=== PATIENT | female | born 1945 | race Caucasian/White ===

== ENCOUNTER → 2017-02-24 | Outpatient (CLI) | payer OTHER ==
[2015-01-18 10:17] VITALS: BP 166/80
--- NOTE | 2017-02-24 14:18 | MG ---
Examination: Bilateral diagnostic mammogram and left breast ultrasound. Clinical history: Personal history of left breast carcinoma with a left lumpectomy and left axillary dissection, as well as radiation therapy to the left breast in 2014. Now has pain at the lumpectomy s ite and in the retroareolar region of the left breast. Technique: Multiple digital images of both breasts were obtained. Implant displaced views of both aiden asts were also obtained. Targeted left breast ultrasound was also obtained evaluating the lumpectomy site and the retroareolar region of the left breast. Comparison: 02/05/2016, 08/02/2015. Findings: The breasts are heterogeneously dense, reducing the sensitivity of mammography. Bilateral breast pros theses are partially visualized, with no definite abnormality noted. Benign-appearing calcifications and vascular calcifications are noted in the breasts bilaterally. There are stable postsurgical darnell es from a left lumpectomy with a left axillary dissection. No suspicious mass, new area of architectural distortion or suspicious cluster of microcalcifications is noted. Targeted left breast ultrasound evaluating the lumpectomy site and retroareolar region of the left br east reveals a stable irregular-shaped hypoechoic area present at the lumpectomy site at the 9 o'cloc k position in the left breast, consistent with postsurgical scarring, with scattered areas of mild du ctal ectasia also seen at the lumpectomy site and in the retroareolar region of the left breast. No s uspicious cystic or solid mass is noted. Impression: 1. Stable postsurgical changes from a left lumpectomy. No mammographic or sonographic evidence of mal ignancy. BI-RADS category 2-benign findings. Recommend routine annual screening mammogram. Diagnostic CAD was utilized and reviewed. * 0 (ZERO) - ASSESSMENT INCOMPLETE; ADDITIONAL IMAGING IS NEEDED. * 0C - ASSESSMENT INCOMPLETE, NEEDS ADDITIONAL IMAGING EVALUATION AND/OR PRIOR MAMMOGRAMS FOR COMPARI SON. * / (ONE) - NEGATIVE. * 2/II (TWO) - BENIGN FINDINGS. * 3/III (THREE) - PROBABLY BENIGN FINDING; SHORT INTERVAL FOLLOW-UP SUGGESTED. * 4/IV (FOUR) - SUSPICIOUS ABNORMALITY; BIOPSY SHOULD BE CONSIDERED. * 5/V - HIGHLY SUSPICIOUS OF MALIGNANCY; BIOPSY SHOULD BE PERFORMED. * 6/IV - KNOWN BIOPSY PROVEN MALIGNANCY-APPROPRIATE ACTION SHOULD BE TAKEN. A NEGATIVE X-RAY REPORT SHOULD NOT DELAY BIOPSY IF A DOMINANT OR CLINICALLY SUSPICIOUS MASS IS PRESENT; 4 TO 8 PERCENT OF CANCERS ARE NOT IDENTIFIED BY X-RAY. A NEGATIVE REPORT MAY REINFORCE THE CLINICAL IMPRESSION. ADENOSIS AND DENSE BREASTS MAY OBSCURE AN UNDERLYING NEOPLASM. Reported By:
== END | disposition home or self-care (01) ==
LOC: RAD 12:20
PROVIDERS: ATTEND Specialist
DX: Z85.3 Personal history of malignant neoplasm of breast (principal); N64.4 Mastodynia
CPT/HCPCS: 76642; 77066

== ENCOUNTER → 2017-06-02 | Outpatient (CLI) | payer OTHER ==
[2015-01-18 10:17] VITALS: BP 166/80
--- NOTE | 2017-06-02 14:45 | MRI ---
HISTORY: Low back pain Study: MRI lumbar spine without contrast Comparison: None Technique: Multisequence, multiplanar imaging of the lumbar spine was performed without the administration of IV contrast. Findings: Imaging of the lumbar spine demonstrates minimal anterolisthesis of L3 on L4, likely secondary to adv anced facet hypertrophy and degenerative disc disease at this level. There is mild loss of vertebral body height centrally involving the L5 vertebral body, likely related to degenerative disc disease. N o acute or early subacute compression fracture is identified within the lumbar spine. Multilevel disc desiccation is noted. There is severe loss of disc space height at the T12-L1 level with associated degenerative endplate change and mild reactive edema. Milder degenerative endplate changes are identi fied at other levels within the lumbar spine. Moderate loss of disc space height is noted at the L3-L 4 level. The conus terminates at the L1 level. Evaluation of the pre and paravertebral soft tissues d emonstrates a tiny renal cyst within the left kidney. T12-L1: At the T12-L1 level there is a mild broad-based disc bulge as well as mild facet hypertrophy, resulting in no significant canal stenosis or neuroforaminal compromise. L1-L2: At the L1-L2 level there is mild facet hypertrophy and mild disc ridging, resulting in no sign ificant canal stenosis or neuroforaminal compromise. L2-L3: At the L2-L3 level there is facet hypertrophy and mild disc ridging, resulting in no significa nt canal stenosis or neuroforaminal compromise. L3-L4: At the L3-L4 level there is a mild broad-based disc bulge with a slight right lateral recess p redominance and facet hypertrophy which, along with mild listhesis at this level, are resulting in mi ld neuroforaminal compromise on the right but no significant canal stenosis. L4-L5: At the L4-L5 level there is a small left lateral recess disc protrusion superimposed upon mild broad-based disc ridging and facet hypertrophy, resulting in moderate to severe neuroforaminal compr omise on the left and minimal neuroforaminal compromise on the right but no significant canal stenosi s. There appears to be mass effect upon the exiting left L4 nerve root by the disc protrusion. L5-S1: At the L5-S1 level there is a small right lateral recess disc protrusion superimposed upon mil d broad-based disc ridging as well as advanced facet hypertrophy, resulting in no significant canal s tenosis or neuroforaminal compromise. IMPRESSION: 1. Multilevel facet arthropathy and degenerative disc disease as described above, most significant at the L4-L5 level, where there is moderate to severe neuroforaminal compromise on the left secondary t o a left lateral recess disc protrusion, which appears to exhibit mass effect upon the exiting left L 4 nerve root. Reported By:
== END | disposition home or self-care (01) | DRG 552 ==
LOC: RAD 12:48
PROVIDERS: ATTEND Orthopaedic Surgery
DX: M54.5 Low back pain (principal); M51.36 Other intervertebral disc degeneration, lumbar region; M12.88 Other specific arthropathies, not elsewhere classified, other specified site
CPT/HCPCS: 72148

== ENCOUNTER → 2017-08-05 | Outpatient (CLI) | payer OTHER ==
[2015-01-18 10:17] VITALS: BP 166/80
--- NOTE | 2017-08-05 16:51 | CT ---
History: Hypertension, breast cancer, low back pain Study: Lumbar spine without contrast Findings: [address] imaging is performed from the lower portion of T11 through the sacrum and c occyx in the axial plane with coronal and sagittal reformatted images submitted as well. There is sev ere osteopenia of the bony structures. There is severe disc space narrowing at the T12-L1 and L3-4 le vels were vacuum discs are present. There is mild disc space narrowing at the L4-5 level with associa fer vacuum disc. No disc herniation, spinal or foraminal stenosis is identified. There are mild-to-mo derate osteoarthritic changes of the apophyseal joints predominantly in the lower lumbar region. No f racture is seen. 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 Osteopenia of the bony structures. Reported By:
--- NOTE | 2017-08-06 11:02 | MRI ---
MR right hip without contrast Indication: Bilateral hip joint pain and lower back pain. History of breast cancer. Technique: Multiplanar multi sequence imaging through the right hip and pelvis without contrast Findings: There is lower lumbar spine disc degenerative change and facet arthropathy. SI joint DJD no fer. Bilateral mild hip joint degenerative change noted. Symphysis pubis DJD seen. Bilateral gluteus medius atrophy noted. Bone marrow signal is normal. Visualized abdominopelvic soft tissue shows no ac iliamna abnormality. There is bilateral greater trochanteric bursitis. Trace joint fluid present bilaterally. Chronic fraying of the right acetabular labrum noted. Tendinosis versus chronic tearing of the gluteus medius tendon suggested. Impression: 1. Bilateral greater trochanteric bursitis with chronic tearing/tendinosis of the gluteus medius tend on on the right noted. Right gluteus medius muscle belly atrophy noted. 2. Fraying of the right acetabular labrum, pelvis degenerative change other findings as above. Reported By:
--- NOTE | 2017-08-06 11:04 | MRI ---
MR left hip without contrast Indication: Hip joint pain. Bilateral hip pain and lower back pain. Findings: There is spine degenerative change. Bone marrow signal is normal. Neurovascular structures and abdominopelvic soft tissues shows no acute abnormality. SI joint, symphysis pubis and bilateral h ip joint degenerative changes noted. Bilateral gluteus medius muscle belly atrophy noted. There is bi lateral greater trochanteric bursitis. Gluteus medius tendinosis noted on the left, with partial tear suspected on the right. There is no fracture. Degenerative fraying of the left acetabulum noted. Tra ce left hip joint fluid identified. Impression: 1. Left greater trochanteric bursitis and gluteus medius tendinosis with muscle belly atrophy. Partia l tear possible. 3. Left hip and pelvis degenerative changes as above Reported By:
== END | disposition home or self-care (01) | DRG 556 ==
LOC: RAD 13:47
PROVIDERS: ATTEND Neurological Surgery
DX: M25.559 Pain in unspecified hip (principal); M54.16 Radiculopathy, lumbar region; M51.36 Other intervertebral disc degeneration, lumbar region; M85.88 Other specified disorders of bone density and structure, other site; M47.896 Other spondylosis, lumbar region; M16.12 Unilateral primary osteoarthritis, left hip; M76.02 Gluteal tendinitis, left hip; S73.191A Other sprain of right hip, initial encounter; X58.XXXA Exposure to other specified factors, initial encounter
CPT/HCPCS: 72131; 73721

== ENCOUNTER → 2017-08-27 | Outpatient (CLI) | payer OTHER ==
[2015-01-18 10:17] VITALS: BP 166/80
--- NOTE | 2017-08-27 16:40 | MRI ---
MRI OF THE CERVICAL SPINE WITHOUT IV CONTRAST CLINICAL INDICATION: Cervical spine stenosis TECHNIQUE: Pre-contrast sagittal T1-, T2-, and T2-w fat-saturated images, and axial T1- and T2-w imag es of the cervical spine. COMPARISON: None. FINDINGS: Grade 1 retrolisthesis of C5 on C6. Vertebral bodies are normal in height. There is a normal marrow s ignal pattern. Multilevel degenerative disc disease. There is no abnormality of the cranio-cervical j unction. The included paraspinal soft tissues are grossly normal. Evaluation of the individual levels demonstrates: C1-2: Normal C2-3: Disc osteophyte complex with luek-qc-wycnrcrt central stenosis and moderate left neural foramin al stenosis C3-4: Disc osteophyte complex with moderate central stenosis and moderate left neural foraminal steno sis C4-5: Disc osteophyte complex with moderate central stenosis and moderate left-sided neural foraminal C5-6: Stenosis. Disc osteophyte complex with kanx-ow-bhiarhad central stenosis and moderate bilateral neural foraminal stenosis C6-7: Normal C7-T1: Normal IMPRESSION: 1. Multilevel degenerative disc disease as above. Reported By:
== END | disposition home or self-care (01) | DRG 552 ==
LOC: RAD 10:08
PROVIDERS: ATTEND Neurological Surgery
DX: M48.02 Spinal stenosis, cervical region (principal); M50.31 Other cervical disc degeneration, high cervical region
CPT/HCPCS: 72141

== ENCOUNTER 2019-11-17 18:49 | Inpatient (IN) ==
[2019-11-17 22:30] LABS: BASOPHILS % (AUTO) 0.6 % (0.2-1.0); EOSINOPHILS # (AUTO) 0.1 x10^3/uL (0.0-0.2); EOSINOPHILS % (AUTO) 1.1 % (0.9-2.9); HEMOGLOBIN 12.8 g/dL (12.0-16.0); LYMPHOCYTES % (AUTO) 15.1 % (21.0-51.0); MEAN CORPUSCULAR HEMOGLOBIN 29.3 pg (27.0-34.0); MEAN CORPUSCULAR HGB CONC 33.6 g/dL (33.0-35.0); MEAN CORPUSCULAR VOLUME 87.2 fL (80.0-100.0); MEAN PLATELET VOLUME 7.6 fL (7.4-11.0); MONOCYTES # (AUTO) 0.9 x10^3/uL (0.3-0.8); MONOCYTES % (AUTO) 12.9 % (0.0-13.0); NEUTROPHILS # (AUTO) 4.7 x10^3/uL (2.2-4.8); NEUTROPHILS % (AUTO) 70.3 % (42.0-75.0); PLATELET COUNT 294 X10^3/uL (150.0-450.0); RED BLOOD COUNT 4.36 X10^6/uL (3.5-5.4); RED CELL DISTRIBUTION WIDTH 13.7 % (11.6-16.5); WHITE BLOOD COUNT 6.7 X10^3/uL (3.6-10.0)
[2019-11-17] MEDS ORDERED: TORADOL 15 MG VIAL IVP PRN (22:36)
[2019-11-17] MEDS ORDERED: ZOFRAN INJ 4 MG VIAL IVP PRN (22:36)
[2019-11-17 22:40] LABS: ALANINE AMINOTRANSFERASE 32 Units/L (12-78); ALBUMIN 3.4 g/dL (3.4-5.0); ALKALINE PHOSPHATASE 67 Units/L (46-116); ASPARTATE AMINO TRANSFERASE 33 Units/L (15-37); BLOOD UREA NITROGEN 23 mg/dL (7-18); CARBON DIOXIDE 27.1 mmol/L (21-32); CHLORIDE 99 mmol/L (98-107); SODIUM 134 mmol/L (136-145); TOTAL PROTEIN 7.7 g/dL (6.4-8.2); eGFR NON BLACK RACES 47 (>60)
[2019-11-17] MEDS: NS 1000 ML 1,000 ML IV SCH (23:30)
[2019-11-17] MEDS ORDERED: POTASSIUM CHLORIDE LIQ 20 MEQ UDC PO PRN (23:52)
[2019-11-17] MEDS ORDERED: POTASSIUM CHL 40 MEQ/NS 0.45% 500 ML IV PRN (23:52)
[2019-11-17] MEDS ORDERED: MICRO K EXTEN CAP 10 MEQ PO PRN (23:52)
[2019-11-17] MEDS ORDERED: K-RIDER 10 MEQ/NS 100 ML 10 MEQ/100 ML BAG IV PRN (23:52)
[2019-11-17] MEDS ORDERED: POTASSIUM CHL 60 MEQ/NS 0.45% 500 ML IV PRN (23:52)
[2019-11-17] MEDS ORDERED: KLOR-CON PO PRN (23:52)
[2019-11-17] MEDS ORDERED: K-DUR TAB 20 MEQ PO ONE (23:59)
[2019-11-18] MEDS: K-DUR TAB 20 MEQ PO PRN (00:12)
[2019-11-18] MEDS ORDERED: MAGNESIUM SULFATE 1 GRAM/100 mL PREMIX 1 G/100 ML BAG IV ONE ×3 (02:32→04:41)
[2019-11-18] MEDS: MAGNESIUM SULFATE 1 GRAM/100 mL PREMIX 1 G/100 ML BAG IV PRN ×4 (02:40→06:17)
[2019-11-18] MEDS: NS 1000 ML 1,000 ML IV SCH ×3 (06:17→22:41)
[2019-11-18 06:22] LABS: BASOPHILS % (AUTO) 0.8 % (0.2-1.0); EOSINOPHILS # (AUTO) 0.1 x10^3/uL (0.0-0.2); HEMATOCRIT 36.3 % (36.0-47.0); HEMOGLOBIN 12.4 g/dL (12.0-16.0); LYMPHOCYTES % (AUTO) 17.6 % (21.0-51.0); MEAN CORPUSCULAR HEMOGLOBIN 29.9 pg (27.0-34.0); MEAN CORPUSCULAR HGB CONC 34.1 g/dL (33.0-35.0); MEAN CORPUSCULAR VOLUME 87.6 fL (80.0-100.0); MEAN PLATELET VOLUME 8.7 fL (7.4-11.0); MONOCYTES # (AUTO) 0.7 x10^3/uL (0.3-0.8); MONOCYTES % (AUTO) 12.1 % (0.0-13.0); NEUTROPHILS # (AUTO) 3.7 x10^3/uL (2.2-4.8); NEUTROPHILS % (AUTO) 67.5 % (42.0-75.0); PLATELET COUNT 285 X10^3/uL (150.0-450.0); RED BLOOD COUNT 4.15 X10^6/uL (3.5-5.4); RED CELL DISTRIBUTION WIDTH 13.7 % (11.6-16.5); WHITE BLOOD COUNT 5.4 X10^3/uL (3.6-10.0)
[2019-11-18 06:23] LABS: ALANINE AMINOTRANSFERASE 31 Units/L (12-78); ALKALINE PHOSPHATASE 57 Units/L (46-116); ASPARTATE AMINO TRANSFERASE 31 Units/L (15-37); BLOOD UREA NITROGEN 21 mg/dL (7-18); CALCIUM 9.3 mg/dL (8.5-10.1); CARBON DIOXIDE 26.5 mmol/L (21-32); CHLORIDE 100 mmol/L (98-107); COR CA(FOR HYPOALB) 10.1 mg/dL (8.5-10.1); COR NA(FOR HYPERGLY) 134 mmol/L (136-145); CREATININE 1.06 mg/dL (0.55-1.02); SODIUM 134 mmol/L (136-145); TOTAL PROTEIN 6.9 g/dL (6.4-8.2); eGFR NON BLACK RACES 54 (>60)
[2019-11-18] MEDS ORDERED: NS 1000 ML 1,000 ML IV ONE (09:59)
[2019-11-18] MEDS ORDERED: LEVAQUIN PREMIX IV 500 MG 500 MG/100 ML BAG IV SCH (10:00)
[2019-11-18] MEDS ORDERED: FORTAZ or TAZICEF VIAL INJ 1 G in NS 100 ML IV + SPIKE MINIBAG* 100 ML IV SCH (10:00)
[2019-11-18] MEDS ORDERED: OLMESARTAN AMLODIPIN HCTHIAZID PO SCH (10:15)
[2019-11-18] MEDS ORDERED: LEVAQUIN PREMIX IV 500 MG 500 MG/100 ML BAG IV NR (11:00)
[2019-11-18] MEDS ORDERED: PROTONIX TAB 40 MG PO ONE (11:04)
[2019-11-18] MEDS: MICRO K EXTEN CAP 10 MEQ PO SCH (11:08)
[2019-11-18] MEDS: TRICOR TAB 160 MG PO SCH (11:08)
[2019-11-18] MEDS: COREG TAB 12.5 MG PO SCH ×2 (11:09→21:00)
[2019-11-18] MEDS: NEURONTIN CAP 300 MG PO SCH ×3 (11:09→21:00)
[2019-11-18] MEDS: SYNTHROID 50 mcg TAB PO SCH (11:09)
[2019-11-18] MEDS: ULTRAM PO SCH ×3 (11:10→22:41)
[2019-11-18] MEDS: LOVENOX INJ 40 MG SYR SC SCH (11:14)
[2019-11-18] MEDS: NORVASC TAB 10 MG PO SCH (11:14)
[2019-11-18] MEDS: HYDROCHLOROTHIAZIDE 25 MG TAB PO SCH (11:14)
[2019-11-18] MEDS: BENICAR TAB 40 MG PO SCH (11:15)
--- NOTE | 2019-11-18 13:37 | DR.H&P ---
H&P - History & Physical for Day of: H&P Date: 11/17/19 - Chief Complaint Chief Complaint: FEVER, NAUSEA, VOMITING, WEAKNESS, ABDOMINAL PAIN - History of Present Illness History of Present Illness: IS A 74 YEAR OLD PATIENT OF OURS. SHE PRESENTED TO THE HOSPITAL A DIRECT ADMISSION DUE TO COMPLAINTS OF FEVER, NAUSEA, VOMITING, WEAKNESS, AND ABDOMINAL PAIN. SHE WAS TREATED IN THE ER ON 11/14/19 FOR A URINARY TRACT INFECTION AND KIDNEY STONES. SHE WAS DISCHARGED HOME ON BACTRIM DS 1 TABLET PO BID. SHE REPORTS THAT SYMPTOMS HAVE PROGRESSIVELY GOTTEN WORSE SINCE THEN. PAIN IS LOCATED AT THE SUPRAPUBIC AREA AND IS RATED 4/10. ON ARRIVAL TO THE HOSPITAL, VITALS WERE 98.8-67-22-98%-178/79. LABS WERE OBTAINED. ABNORMAL LAB VALUES INCLUDE THE FOLLOWING: SODIUM 134, POTASSIUM 2.7, BUN 23, CREATININE 1.20, MAGNESIUM 1.4. URINE CULTURE THAT WAS OBTAINED IN THE ER ON 11/14/19 REVEALED GROWTH OF KLEBSIELLA PNEUMONIAE. BLOOD CULTURES WERE SET UP. WE STARTED HER ON NORMAL SALINE AT 125 ML/HR, THE POTASSIUM AND MAGNESIUM PROTOCOLS, FORTAZ 1G IV Q12H, LEVAQUIN 250MG IV DAILY, ZOFRAN 4MG IV Q4H PRN, TORADOL 15MG IV Q8H PRN, AND WE RESUMED HER HOME MEDICATIONS. WE WILL GIVE HER A 1 LITER NORMAL SALINE BOLUS TODAY. OTHERWISE, WE WILL FOLLOW UP WITH AM LABS AND CONTINUE TO MONITOR. - Past Medical History Past Medical History: Hypertension - Past Surgical History Surgical History: Cholecystectomy, Ortho Surgery, Other - Family History Family Medical History: Cancer - Social History Type of Tobacco Use: None Does any household member use tobacco: No Alcohol Use: None Drug Use: None - Medications Home Medications: No Known Drug Allergies Allergy (Verified 03/07/19 15:41) CONTINUE taking the following medications carvedilol 12.5 mg PO BID 11/17/19 [History] clonidine HCl [Catapres] 0.1 mg PO BID 11/17/19 [History] fenofibrate 160 mg PO DAILY 11/17/19 [History] levothyroxine [Synthroid] 50 mcg PO DAILY 11/17/19 [History] weguatrpas-wrhvjtkvx-hnagxwugn 1 tab PO DAILY 11/17/19 [History] pantoprazole [Protonix] 20 mg PO QAM 11/17/19 [History] potassium chloride 10 meq PO DAILY 11/17/19 [History] tramadol 50 mg PO TID 11/17/19 [History] - Review of Systems Constitutional: Fever, Chills, Weakness Eyes: No Symptoms Reported ENT: No Symptoms Reported Respiratory: No Symptoms Reported Cardiovascular: No Symptoms Reported Gastrointestinal: Nausea, Vomiting, Abdominal Pain Genitourinary: No Symptoms Reported Musculoskeletal: No Symptoms Reported Skin: No Symptoms Reported Neurological: Weakness - Physical Exam Vital Signs: Temperature 98.2 F Pulse Rate [Left] 65 Respiratory Rate 18 Blood Pressure [Left Arm] 139/66 O2 Sat by Pulse Oximetry 98 Oriented: Normal Eyes: Normal Ear: Normal Nose: Normal Throat: Normal Respiratory: Diminished Throughout Cardiovascular: Normal : Normal Auscultation: Bowel Sounds: Normal Palpation: Normal Tenderness: Suprapubic Skin: Normal Musculoskeletal: Normal Psychiatric: Normal Mood Description: Calm Affect: Normal Speech Pattern: Clear - Assessment/Plan (1) Pyelonephritis Status: Acute Plan: ADMIT, NORMAL SALINE AT 125 ML/HR, THE POTASSIUM AND MAGNESIUM PROTOCOLS, FORTAZ 1G IV Q12H, LEVAQUIN 250MG IV DAILY, ZOFRAN 4MG IV Q4H PRN, TORADOL 15MG IV Q8H PRN, AND WE RESUMED HER HOME MEDICATIONS (2) Dehydration Status: Acute (3) Acute hypokalemia Status: Acute (4) Kidney stones Status: Acute - Allergies Allergies/Adverse Reactions: Allergies Allergy/AdvReac Type Severity Reaction Status Date / Time No Known Drug Allergies Allergy Verified 03/07/19 15:41
[2019-11-18 13:57] VITALS: BMI 32.4
[2019-11-18] MEDS: FORTAZ or TAZICEF VIAL INJ 1 G in NS 100 ML IV + SPIKE MINIBAG* 100 ML IV SCH (21:00)
[2019-11-18] MEDS: KLONOPIN TAB 1 MG PO SCH (21:00)
[2019-11-19] MEDS: NS 1000 ML 1,000 ML IV SCH ×4 (04:08→21:20)
[2019-11-19] MEDS: NEURONTIN CAP 300 MG PO SCH ×3 (05:39→21:19)
[2019-11-19 06:41] LABS: BASOPHILS % (AUTO) 0.8 % (0.2-1.0); EOSINOPHILS # (AUTO) 0.1 x10^3/uL (0.0-0.2); EOSINOPHILS % (AUTO) 2.6 % (0.9-2.9); HEMATOCRIT 36.4 % (36.0-47.0); HEMOGLOBIN 12.1 g/dL (12.0-16.0); LYMPHOCYTES % (AUTO) 23.6 % (21.0-51.0); MEAN CORPUSCULAR HEMOGLOBIN 29.3 pg (27.0-34.0); MEAN CORPUSCULAR HGB CONC 33.3 g/dL (33.0-35.0); MEAN PLATELET VOLUME 7.6 fL (7.4-11.0); MONOCYTES # (AUTO) 0.4 x10^3/uL (0.3-0.8); MONOCYTES % (AUTO) 9.4 % (0.0-13.0); NEUTROPHILS # (AUTO) 2.8 x10^3/uL (2.2-4.8); NEUTROPHILS % (AUTO) 63.6 % (42.0-75.0); PLATELET COUNT 310 X10^3/uL (150.0-450.0); RED BLOOD COUNT 4.13 X10^6/uL (3.5-5.4); RED CELL DISTRIBUTION WIDTH 13.9 % (11.6-16.5); WHITE BLOOD COUNT 4.4 X10^3/uL (3.6-10.0)
[2019-11-19 07:06] LABS: ALANINE AMINOTRANSFERASE 39 Units/L (12-78); ALKALINE PHOSPHATASE 57 Units/L (46-116); ASPARTATE AMINO TRANSFERASE 40 Units/L (15-37); BLOOD UREA NITROGEN 13 mg/dL (7-18); CALCIUM 9.2 mg/dL (8.5-10.1); CARBON DIOXIDE 28.7 mmol/L (21-32); CHLORIDE 104 mmol/L (98-107); CREATININE 0.95 mg/dL (0.55-1.02); MAGNESIUM 1.5 mg/dL (1.7-2.9); SODIUM 140 mmol/L (136-145); TOTAL PROTEIN 6.9 g/dL (6.4-8.2); eGFR NON BLACK RACES > 60 (>60)
[2019-11-19] MEDS ORDERED: LEVAQUIN PREMIX IV 250 MG 250 MG/50 ML BAG IV SCH (09:00)
[2019-11-19] MEDS: COREG TAB 12.5 MG PO SCH ×2 (09:27→20:33)
[2019-11-19] MEDS: HYDROCHLOROTHIAZIDE 25 MG TAB PO SCH (09:27)
[2019-11-19] MEDS: LOVENOX INJ 40 MG SYR SC SCH (09:27)
[2019-11-19] MEDS: NORVASC TAB 10 MG PO SCH (09:28)
[2019-11-19] MEDS: PROTONIX TAB 40 MG PO SCH (09:28)
[2019-11-19] MEDS: K-DUR TAB 20 MEQ PO PRN (09:28)
[2019-11-19] MEDS: BENICAR TAB 40 MG PO SCH (09:29)
[2019-11-19] MEDS: MICRO K EXTEN CAP 10 MEQ PO SCH (09:29)
[2019-11-19] MEDS: TRICOR TAB 160 MG PO SCH (09:29)
[2019-11-19] MEDS: SYNTHROID 50 mcg TAB PO SCH (09:30)
--- NOTE | 2019-11-19 11:01 | PCM.PROG ---
Progress Note Progress Note for Day of Date of Exam: 11/19/19 Subjective Subjective: Patient seen at bedside, no events overnight. Patient states she feels a lot better today. Diarrhea has improved, no N/V, tolerating diet. She has been afebrile. She is currently being treated for pyelonephritis with urine cultures growing Klebsiela and blood cultures growing Gm (-) rods. She is on Fortaz and levaquin. Labs: K: 3.1 M.5 Plan: continue IV antibiotics, follow cultures, replace K and mag as per protocol, continue IVF. Monitor AM labs. Patient reports taking clonidine prn at home, will resume that. Past Medical Family Social History Past Med/Fam/Surg Hx: No changes since H&P Allergies: Allergies No Known Drug Allergies Allergy (Verified 03/07/19 15:41) Review of Systems ROS: No change since H&P Vital Signs and I&O's Vital Signs: Temperature 98.1 F Pulse Rate [Left] 79 Respiratory Rate 20 Blood Pressure [Left Arm] 176/79 O2 Sat by Pulse Oximetry 97 Intake and Output: Intake & Output 11/16/19 11/17/19 11/18/19 11/19/19 23:59 23:59 23:59 23:59 Intake Total 200 / 200 2726 / 2726 1050 / 1050 Balance 200 / 200 2726 / 2726 1050 / 1050 Physical Exam Oriented: Normal Eyes: Normal Ear: Normal Nose: Normal Throat: Normal Cardiovascular: Normal Auscultation: Bowel Sounds: Normal Tenderness: Normal Skin: Normal Musculoskeletal: Normal Psychiatric: Normal Mood Description: Calm Affect: Normal Speech Pattern: Clear and Appropriate Laboratory and Diagnostics Result Diagrams: 11/19/19 05:29 11/19/19 05:29 Labs: Laboratory WBC 4.4 X10^3/uL (3.6-10.0) 11/19/19 05:29 RBC 4.13 X10^6/uL (3.5-5.4) 11/19/19 05:29 Hgb 12.1 g/dL (12.0-16.0) 11/19/19 05:29 Hct 36.4 % (36.0-47.0) 11/19/19 05:29 MCV 88.0 fL (80.0-100.0) 11/19/19 05:29 MCH 29.3 pg (27.0-34.0) 11/19/19 05:29 MCHC 33.3 g/dL (33.0-35.0) 11/19/19 05:29 RDW 13.9 % (11.6-16.5) 11/19/19 05:29 Plt Count 310 X10^3/uL (150.0-450.0) 11/19/19 05:29 MPV 7.6 fL (7.4-11.0) 11/19/19 05:29 Neut % (Auto) 63.6 % (42.0-75.0) 11/19/19 05:29 Lymph % (Auto) 23.6 % (21.0-51.0) 11/19/19 05:29 Roberts % (Auto) 9.4 % (0.0-13.0) 11/19/19 05:29 Eos % (Auto) 2.6 % (0.9-2.9) 11/19/19 05:29 Baso % (Auto) 0.8 % (0.2-1.0) 11/19/19 05:29 Neut # (Auto) 2.8 x10^3/uL (2.2-4.8) 11/19/19 05:29 Lymph # (Auto) 1.0 X10^3/uL (1.3-2.9) L 11/19/19 05:29 Roberts # (Auto) 0.4 x10^3/uL (0.3-0.8) 11/19/19 05:29 Eos # (Auto) 0.1 x10^3/uL (0.0-0.2) 11/19/19 05:29 Baso # (Auto) 0.0 X10^3/uL (0.0-0.1) 11/19/19 05:29 Absolute Nucleated RBC 0.1 /100WBC 11/19/19 05:29 Sodium 140 mmol/L (136-145) 11/19/19 05:29 Corrected Sodium TNP 11/19/19 05:29 Potassium 3.1 mmol/L (3.5-5.1) L 11/19/19 05:29 Chloride 104 mmol/L (98-107) 11/19/19 05:29 Carbon Dioxide 28.7 mmol/L (21-32) 11/19/19 05:29 BUN 13 mg/dL (7-18) 11/19/19 05:29 Creatinine 0.95 mg/dL (0.55-1.02) 11/19/19 05:29 Est GFR (MDRD) Af Amer > 60 (>60) 11/19/19 05:29 Est GFR (MDRD) Non-Af > 60 (>60) 11/19/19 05:29 Glucose 92 mg/dL (65-99) 11/19/19 05:29 Calcium 9.2 mg/dL (8.5-10.1) 11/19/19 05:29 Corrected Calcium 10.0 mg/dL (8.5-10.1) 11/19/19 05:29 Magnesium 1.5 mg/dL (1.7-2.9) L 11/19/19 05:29 Total Bilirubin 0.20 mg/dL (0.2-1.0) 11/19/19 05:29 AST 40 Units/L (15-37) H 11/19/19 05:29 ALT 39 Units/L (12-78) 11/19/19 05:29 Alkaline Phosphatase 57 Units/L (46-116) 11/19/19 05:29 Total Protein 6.9 g/dL (6.4-8.2) 11/19/19 05:29 Albumin 3.0 g/dL (3.4-5.0) L 11/19/19 05:29 Globulin 3.9 g/dL (2.5-4.5) 11/19/19 05:29 Albumin/Globulin Ratio 0.8 Ratio (1.1-2.1) L 11/19/19 05:29 Plan (1) Gram-negative bacteremia: Status: Acute (2) Pyelonephritis: Status: Acute Plan: ADMIT, NORMAL SALINE AT 125 ML/HR, THE POTASSIUM AND MAGNESIUM PROT OCOLS, FORTAZ 1G IV Q12H, LEVAQUIN 250MG IV DAILY, ZOFRAN 4MG IV Q4H PRN, TORADOL 15MG IV Q8H PRN, AND WE RESUMED HER HOME MEDICATIONS (3) Dehydration: Status: Acute (4) Acute hypokalemia: Status: Acute (5) Kidney stones: Status: Acute (6) Hypomagnesemia: Status: Acute
[2019-11-19] MEDS ORDERED: CATAPRES TAB 0.1 MG PO PRN (11:02)
[2019-11-19] MEDS: FORTAZ or TAZICEF VIAL INJ 1 G in NS 100 ML IV + SPIKE MINIBAG* 100 ML IV SCH ×2 (12:06→20:34)
[2019-11-19] MEDS: ULTRAM PO SCH ×3 (14:32→21:20)
[2019-11-19] MEDS: KLONOPIN TAB 1 MG PO SCH (20:34)
[2019-11-20] MEDS: NS 1000 ML 1,000 ML IV SCH ×6 (00:30→21:07)
[2019-11-20 05:25] LABS: EOSINOPHILS # (AUTO) 0.2 x10^3/uL (0.0-0.2); HEMATOCRIT 33.1 % (36.0-47.0); HEMOGLOBIN 10.9 g/dL (12.0-16.0); LYMPHOCYTES # (AUTO) 1.3 X10^3/uL (1.3-2.9); LYMPHOCYTES % (AUTO) 27.2 % (21.0-51.0); MEAN CORPUSCULAR HEMOGLOBIN 29.2 pg (27.0-34.0); MEAN CORPUSCULAR VOLUME 88.5 fL (80.0-100.0); MEAN PLATELET VOLUME 7.8 fL (7.4-11.0); MONOCYTES # (AUTO) 0.5 x10^3/uL (0.3-0.8); MONOCYTES % (AUTO) 11.4 % (0.0-13.0); NEUTROPHILS # (AUTO) 2.6 x10^3/uL (2.2-4.8); NEUTROPHILS % (AUTO) 55.4 % (42.0-75.0); PLATELET COUNT 300 X10^3/uL (150.0-450.0); RED BLOOD COUNT 3.74 X10^6/uL (3.5-5.4); RED CELL DISTRIBUTION WIDTH 13.8 % (11.6-16.5); WHITE BLOOD COUNT 4.6 X10^3/uL (3.6-10.0)
[2019-11-20 05:45] LABS: ALANINE AMINOTRANSFERASE 36 Units/L (12-78); ALBUMIN 2.8 g/dL (3.4-5.0); ALKALINE PHOSPHATASE 50 Units/L (46-116); ASPARTATE AMINO TRANSFERASE 32 Units/L (15-37); BLOOD UREA NITROGEN 13 mg/dL (7-18); CALCIUM 9.3 mg/dL (8.5-10.1); CARBON DIOXIDE 29.4 mmol/L (21-32); CHLORIDE 107 mmol/L (98-107); COR CA(FOR HYPOALB) 10.3 mg/dL (8.5-10.1); CREATININE 0.91 mg/dL (0.55-1.02); SODIUM 141 mmol/L (136-145); TOTAL PROTEIN 6.3 g/dL (6.4-8.2); eGFR NON BLACK RACES > 60 (>60)
[2019-11-20] MEDS: NEURONTIN CAP 300 MG PO SCH ×3 (06:04→21:07)
[2019-11-20] MEDS: ULTRAM PO SCH ×3 (06:04→21:08)
[2019-11-20] MEDS: BENICAR TAB 40 MG PO SCH (09:17)
[2019-11-20] MEDS: FORTAZ or TAZICEF VIAL INJ 1 G in NS 100 ML IV + SPIKE MINIBAG* 100 ML IV SCH ×2 (09:17→21:45)
[2019-11-20] MEDS: COREG TAB 12.5 MG PO SCH ×2 (09:17→20:17)
[2019-11-20] MEDS: HYDROCHLOROTHIAZIDE 25 MG TAB PO SCH (09:17)
[2019-11-20] MEDS: LOVENOX INJ 40 MG SYR SC SCH (09:18)
[2019-11-20] MEDS: MICRO K EXTEN CAP 10 MEQ PO SCH (09:18)
[2019-11-20] MEDS: PROTONIX TAB 40 MG PO SCH (09:18)
[2019-11-20] MEDS: SYNTHROID 50 mcg TAB PO SCH (09:18)
[2019-11-20] MEDS: NORVASC TAB 10 MG PO SCH (09:18)
[2019-11-20] MEDS: TRICOR TAB 160 MG PO SCH (09:19)
[2019-11-20] MEDS: CATAPRES TAB 0.1 MG PO PRN ×2 (09:19→20:17)
--- NOTE | 2019-11-20 11:16 | PCM.PROG ---
Progress Note Progress Note for Day of Date of Exam: 11/20/19 Subjective Subjective: Patient seen at bedside, she feels a lot better today. Diarrhea has improved, no N/V, tolerating diet. She has been afebrile. She is currently being treated for pyelonephritis with urine and blood cultures growing Klebsiella. She is on Fortaz and levaquin. Labs: K: 4 M.3 Plan: continue Fortaz, will DC levaquin. Repeat blood cultures. Replace mag as per protocol, continue IVF. Monitor AM labs. Will change clonidine to BID prn for SBP>160. Past Medical Family Social History Past Med/Fam/Surg Hx: No changes since H&P Allergies: Allergies No Known Drug Allergies Allergy (Verified 03/07/19 15:41) Review of Systems ROS: No change since H&P Vital Signs and I&O's Vital Signs: Temperature 98.5 F Pulse Rate [Left] 76 Respiratory Rate 20 Blood Pressure [Left Arm] 195/87 O2 Sat by Pulse Oximetry 95 Intake and Output: Intake & Output 11/17/19 11/18/19 11/19/19 11/20/19 23:59 23:59 23:59 23:59 Intake Total 200 / 200 2726 / 2726 3770 / 3770 1150 / 1150 Balance 200 / 200 2726 / 2726 3770 / 3770 1150 / 1150 Physical Exam Oriented: Normal Eyes: Normal Ear: Normal Nose: Normal Throat: Normal Respiratory: Normal Cardiovascular: Normal Auscultation: Bowel Sounds: Normal Tenderness: Normal Skin: Normal Musculoskeletal: Normal Psychiatric: Normal Mood Description: Calm Affect: Normal Speech Pattern: Clear and Appropriate Laboratory and Diagnostics Result Diagrams: 11/20/19 04:05 11/20/19 04:05 Labs: Laboratory WBC 4.6 X10^3/uL (3.6-10.0) 11/20/19 04:05 RBC 3.74 X10^6/uL (3.5-5.4) 11/20/19 04:05 Hgb 10.9 g/dL (12.0-16.0) L 11/20/19 04:05 Hct 33.1 % (36.0-47.0) L 11/20/19 04:05 MCV 88.5 fL (80.0-100.0) 11/20/19 04:05 MCH 29.2 pg (27.0-34.0) 11/20/19 04:05 MCHC 33.0 g/dL (33.0-35.0) 11/20/19 04:05 RDW 13.8 % (11.6-16.5) 11/20/19 04:05 Plt Count 300 X10^3/uL (150.0-450.0) 11/20/19 04:05 MPV 7.8 fL (7.4-11.0) 11/20/19 04:05 Neut % (Auto) 55.4 % (42.0-75.0) 11/20/19 04:05 Lymph % (Auto) 27.2 % (21.0-51.0) 11/20/19 04:05 Daggett % (Auto) 11.4 % (0.0-13.0) 11/20/19 04:05 Eos % (Auto) 5.0 % (0.9-2.9) H 11/20/19 04:05 Baso % (Auto) 1.0 % (0.2-1.0) 11/20/19 04:05 Neut # (Auto) 2.6 x10^3/uL (2.2-4.8) 11/20/19 04:05 Lymph # (Auto) 1.3 X10^3/uL (1.3-2.9) 11/20/19 04:05 Daggett # (Auto) 0.5 x10^3/uL (0.3-0.8) 11/20/19 04:05 Eos # (Auto) 0.2 x10^3/uL (0.0-0.2) 11/20/19 04:05 Baso # (Auto) 0.0 X10^3/uL (0.0-0.1) 11/20/19 04:05 Absolute Nucleated RBC 0.0 /100WBC 11/20/19 04:05 Sodium 141 mmol/L (136-145) 11/20/19 04:05 Corrected Sodium TNP 11/20/19 04:05 Potassium 4.0 mmol/L (3.5-5.1) 11/20/19 04:05 Chloride 107 mmol/L (98-107) 11/20/19 04:05 Carbon Dioxide 29.4 mmol/L (21-32) 11/20/19 04:05 BUN 13 mg/dL (7-18) 11/20/19 04:05 Creatinine 0.91 mg/dL (0.55-1.02) 11/20/19 04:05 Est GFR (MDRD) Af Amer > 60 (>60) 11/20/19 04:05 Est GFR (MDRD) Non-Af > 60 (>60) 11/20/19 04:05 Glucose 91 mg/dL (65-99) 11/20/19 04:05 Calcium 9.3 mg/dL (8.5-10.1) 11/20/19 04:05 Corrected Calcium 10.3 mg/dL (8.5-10.1) H 11/20/19 04:05 Magnesium 1.3 mg/dL (1.7-2.9) L 11/20/19 04:05 Total Bilirubin 0.20 mg/dL (0.2-1.0) 11/20/19 04:05 AST 32 Units/L (15-37) 11/20/19 04:05 ALT 36 Units/L (12-78) 11/20/19 04:05 Alkaline Phosphatase 50 Units/L (46-116) 11/20/19 04:05 Total Protein 6.3 g/dL (6.4-8.2) L 11/20/19 04:05 Albumin 2.8 g/dL (3.4-5.0) L 11/20/19 04:05 Globulin 3.5 g/dL (2.5-4.5) 11/20/19 04:05 Albumin/Globulin Ratio 0.8 Ratio (1.1-2.1) L 11/20/19 04:05 Plan (1) Bacteremia due to Klebsiella pneumoniae: Status: Acute (2) Pyelonephritis: Status: Acute (3) Dehydration: Status: Acute (4) Acute hypokalemia: Status: Acute (5) Kidney stones: Status: Acute (6) Hypomagnesemia: Status: Acute (7) Hypertension, uncontrolled: Status: Acute
[2019-11-20] MEDS: MAGNESIUM SULFATE 1 GRAM/100 mL PREMIX 1 G/100 ML BAG IV PRN ×4 (15:31→20:18)
[2019-11-20] MEDS: KLONOPIN TAB 1 MG PO SCH (20:16)
[2019-11-21 04:54] LABS: BASOPHILS % (AUTO) 0.7 % (0.2-1.0); EOSINOPHILS # (AUTO) 0.3 x10^3/uL (0.0-0.2); EOSINOPHILS % (AUTO) 5.4 % (0.9-2.9); HEMATOCRIT 32.6 % (36.0-47.0); HEMOGLOBIN 10.8 g/dL (12.0-16.0); LYMPHOCYTES # (AUTO) 1.1 X10^3/uL (1.3-2.9); LYMPHOCYTES % (AUTO) 22.8 % (21.0-51.0); MEAN CORPUSCULAR HEMOGLOBIN 29.6 pg (27.0-34.0); MEAN CORPUSCULAR HGB CONC 33.3 g/dL (33.0-35.0); MEAN CORPUSCULAR VOLUME 88.9 fL (80.0-100.0); MEAN PLATELET VOLUME 7.4 fL (7.4-11.0); MONOCYTES # (AUTO) 0.5 x10^3/uL (0.3-0.8); MONOCYTES % (AUTO) 10.7 % (0.0-13.0); NEUTROPHILS # (AUTO) 2.8 x10^3/uL (2.2-4.8); NEUTROPHILS % (AUTO) 60.4 % (42.0-75.0); PLATELET COUNT 335 X10^3/uL (150.0-450.0); RED BLOOD COUNT 3.66 X10^6/uL (3.5-5.4); RED CELL DISTRIBUTION WIDTH 14.1 % (11.6-16.5); WHITE BLOOD COUNT 4.7 X10^3/uL (3.6-10.0)
[2019-11-21 05:10] LABS: ALANINE AMINOTRANSFERASE 32 Units/L (12-78); ALBUMIN 2.7 g/dL (3.4-5.0); ALKALINE PHOSPHATASE 52 Units/L (46-116); ASPARTATE AMINO TRANSFERASE 30 Units/L (15-37); BLOOD UREA NITROGEN 10 mg/dL (7-18); CALCIUM 8.9 mg/dL (8.5-10.1); CARBON DIOXIDE 31.1 mmol/L (21-32); CHLORIDE 105 mmol/L (98-107); COR CA(FOR HYPOALB) 9.9 mg/dL (8.5-10.1); CREATININE 0.82 mg/dL (0.55-1.02); MAGNESIUM 1.8 mg/dL (1.7-2.9); SODIUM 139 mmol/L (136-145); eGFR NON BLACK RACES > 60 (>60)
[2019-11-21] MEDS: NS 1000 ML 1,000 ML IV SCH ×4 (05:46→19:51)
[2019-11-21] MEDS: NEURONTIN CAP 300 MG PO SCH ×3 (06:04→21:11)
[2019-11-21] MEDS: ULTRAM PO SCH ×3 (06:04→21:11)
[2019-11-21] MEDS: K-DUR TAB 20 MEQ PO PRN (06:17)
[2019-11-21] MEDS: MAGNESIUM SULFATE 1 GRAM/100 mL PREMIX 1 G/100 ML BAG IV PRN ×2 (06:18→09:24)
[2019-11-21] MEDS: FORTAZ or TAZICEF VIAL INJ 1 G in NS 100 ML IV + SPIKE MINIBAG* 100 ML IV SCH ×2 (09:24→21:11)
[2019-11-21] MEDS: LOVENOX INJ 40 MG SYR SC SCH (09:25)
[2019-11-21] MEDS: COREG TAB 12.5 MG PO SCH ×2 (09:26→21:11)
[2019-11-21] MEDS: TRICOR TAB 160 MG PO SCH (09:26)
[2019-11-21] MEDS: CATAPRES TAB 0.1 MG PO PRN ×2 (09:26→21:15)
[2019-11-21] MEDS: NORVASC TAB 10 MG PO SCH (09:26)
[2019-11-21] MEDS: BENICAR TAB 40 MG PO SCH (09:26)
[2019-11-21] MEDS: MICRO K EXTEN CAP 10 MEQ PO SCH (09:27)
[2019-11-21] MEDS: HYDROCHLOROTHIAZIDE 25 MG TAB PO SCH (09:27)
[2019-11-21] MEDS: PROTONIX TAB 40 MG PO SCH (09:27)
[2019-11-21] MEDS: SYNTHROID 50 mcg TAB PO SCH (09:28)
[2019-11-21] MEDS: VSL#3 PO SCH (10:48)
--- NOTE | 2019-11-21 10:53 | PCM.PROG ---
Progress Note - Progress Note for Day of Date of Exam: 11/21/19 - Subjective Subjective: IS BEING TREATED FOR PYELONEPHRITIS. URINE AND BLOOD CULTURES REPORT GROWTH OF KLEBSIELLA PNEUMONIAE. TODAY, SHE IS ALERT AND ORIENTED, LYING IN BED ON MORNING ROUDNS. SHE CONTINUES WITH INTERMITTENT NAUSEA AND WEAKNESS, BUT REPORTS OVERALL IMPROVEMENT IN SYMPTOMS. ON EXAMINATION, HEART IS REGULAR IN RATE AND RHYTHM. BILATERAL LUNGS ARE NOTED WITH DIMINISHED LUNG SOUND THROUGHOUT. ABDOMEN IS ROUND, SOFT, AND NON-TENDER WITH NORMAL BOWEL SOUNDS NOTED IN ALL QUADRANTS. HER VITALS THIS MORNING ARE: 98.1-62-18-96%-163/74. LABS WERE OBTAINED. ABNORMAL LAB VALUES INCLUDE THE FOLLOWING: HGB 10.8, HCT 32.6, GLUCOSE 106, TOTAL PROTEIN 6.0, ALBUMIN 2.7. BLOOD CULTURES WERE REPEATED YESTERDAY. SHE IS CURRENTLY RECEIVING NORMAL SALINE AT 125 ML/HR, THE POTASSIUM AND MAGNESIUM PROTOCOLS, FORTAZ 1G IV Q12H, ZOFRAN 4MG IV Q4H PRN, TORADOL 15MG IV Q8H PRN, AND WE RESUMED HER HOME MEDICATIONS.WE WILL CONTINUE WITH CURRENT PLAN OF CARE TODAY AND START PROBIOTICS. OTHERWISE, WE WILL FOLLOW UP WITH AM LABS AND CONTINUE TO MONITOR. - Past Medical Family Social History Past Med/Fam/Surg Hx: No changes since H&P Allergies: Allergies No Known Drug Allergies Allergy (Verified 03/07/19 15:41) - Review of Systems ROS: No change since H&P - Vital Signs and I&O's Vital Signs: Temperature 98.1 F Pulse Rate [Left] 62 Respiratory Rate 18 Blood Pressure [Right Arm] 163/74 Blood Pressure [Left Arm] 150/72 O2 Sat by Pulse Oximetry 96 Intake and Output: Intake & Output 11/18/19 11/19/19 11/20/19 11/21/19 11:59 11:59 11:59 11:59 Intake Total 946 / 946 3030 / 3030 3870 / 3870 4220 / 4220 Balance 946 / 946 3030 / 3030 3870 / 3870 4220 / 4220 - Physical Exam Oriented: Normal Eyes: Normal Ear: Normal Nose: Normal Throat: Normal Respiratory: Normal Cardiovascular: Normal : Normal Auscultation: Bowel Sounds: Normal Palpation: Normal Tenderness: Normal Skin: Normal Musculoskeletal: Normal Psychiatric: Normal Mood Description: Calm Affect: Normal Speech Pattern: Clear, Appropriate - Laboratory and Diagnostics Result Diagrams: 11/21/19 04:15 11/21/19 04:15 Labs: Laboratory WBC 4.7 X10^3/uL (3.6-10.0) 11/21/19 04:15 RBC 3.66 X10^6/uL (3.5-5.4) 11/21/19 04:15 Hgb 10.8 g/dL (12.0-16.0) L 11/21/19 04:15 Hct 32.6 % (36.0-47.0) L 11/21/19 04:15 MCV 88.9 fL (80.0-100.0) 11/21/19 04:15 MCH 29.6 pg (27.0-34.0) 11/21/19 04:15 MCHC 33.3 g/dL (33.0-35.0) 11/21/19 04:15 RDW 14.1 % (11.6-16.5) 11/21/19 04:15 Plt Count 335 X10^3/uL (150.0-450.0) 11/21/19 04:15 MPV 7.4 fL (7.4-11.0) 11/21/19 04:15 Neut % (Auto) 60.4 % (42.0-75.0) 11/21/19 04:15 Lymph % (Auto) 22.8 % (21.0-51.0) 11/21/19 04:15 Irwin % (Auto) 10.7 % (0.0-13.0) 11/21/19 04:15 Eos % (Auto) 5.4 % (0.9-2.9) H 11/21/19 04:15 Baso % (Auto) 0.7 % (0.2-1.0) 11/21/19 04:15 Neut # (Auto) 2.8 x10^3/uL (2.2-4.8) 11/21/19 04:15 Lymph # (Auto) 1.1 X10^3/uL (1.3-2.9) L 11/21/19 04:15 Irwin # (Auto) 0.5 x10^3/uL (0.3-0.8) 11/21/19 04:15 Eos # (Auto) 0.3 x10^3/uL (0.0-0.2) H 11/21/19 04:15 Baso # (Auto) 0.0 X10^3/uL (0.0-0.1) 11/21/19 04:15 Absolute Nucleated RBC 0.0 /100WBC 11/21/19 04:15 Sodium 139 mmol/L (136-145) 11/21/19 04:15 Corrected Sodium TNP 11/21/19 04:15 Potassium 3.7 mmol/L (3.5-5.1) 11/21/19 04:15 Chloride 105 mmol/L (98-107) 11/21/19 04:15 Carbon Dioxide 31.1 mmol/L (21-32) 11/21/19 04:15 BUN 10 mg/dL (7-18) 11/21/19 04:15 Creatinine 0.82 mg/dL (0.55-1.02) 11/21/19 04:15 Est GFR (MDRD) Af Amer > 60 (>60) 11/21/19 04:15 Est GFR (MDRD) Non-Af > 60 (>60) 11/21/19 04:15 Glucose 106 mg/dL (65-99) H 11/21/19 04:15 Calcium 8.9 mg/dL (8.5-10.1) 11/21/19 04:15 Corrected Calcium 9.9 mg/dL (8.5-10.1) 11/21/19 04:15 Magnesium 1.8 mg/dL (1.7-2.9) 11/21/19 04:15 Total Bilirubin 0.20 mg/dL (0.2-1.0) 11/21/19 04:15 AST 30 Units/L (15-37) 11/21/19 04:15 ALT 32 Units/L (12-78) 11/21/19 04:15 Alkaline Phosphatase 52 Units/L (46-116) 11/21/19 04:15 Total Protein 6.0 g/dL (6.4-8.2) L 11/21/19 04:15 Albumin 2.7 g/dL (3.4-5.0) L 11/21/19 04:15 Globulin 3.3 g/dL (2.5-4.5) 11/21/19 04:15 Albumin/Globulin Ratio 0.8 Ratio (1.1-2.1) L 11/21/19 04:15 - Plan (1) Pyelonephritis Status: Acute Plan: NORMAL SALINE AT 125 ML/HR, THE POTASSIUM AND MAGNESIUM PROTOCOLS, FORTAZ 1G IV Q12H, ZOFRAN 4MG IV Q4H PRN, TORADOL 15MG IV Q8H PRN, AND WE RESUMED HER HOME MEDICATIONS (2) Dehydration Status: Acute (3) Acute hypokalemia Status: Acute (4) Kidney stones Status: Acute
[2019-11-21] MEDS: KLONOPIN TAB 1 MG PO SCH (21:11)
[2019-11-22] MEDS: NS 1000 ML 1,000 ML IV SCH ×2 (00:32→05:15)
[2019-11-22 05:01] LABS: BASOPHILS % (AUTO) 0.5 % (0.2-1.0); EOSINOPHILS # (AUTO) 0.2 x10^3/uL (0.0-0.2); EOSINOPHILS % (AUTO) 4.2 % (0.9-2.9); HEMATOCRIT 33.2 % (36.0-47.0); HEMOGLOBIN 11.1 g/dL (12.0-16.0); LYMPHOCYTES # (AUTO) 0.9 X10^3/uL (1.3-2.9); LYMPHOCYTES % (AUTO) 15.1 % (21.0-51.0); MEAN CORPUSCULAR HEMOGLOBIN 29.5 pg (27.0-34.0); MEAN CORPUSCULAR HGB CONC 33.4 g/dL (33.0-35.0); MEAN CORPUSCULAR VOLUME 88.5 fL (80.0-100.0); MEAN PLATELET VOLUME 7.1 fL (7.4-11.0); MONOCYTES # (AUTO) 0.6 x10^3/uL (0.3-0.8); MONOCYTES % (AUTO) 10.2 % (0.0-13.0); NEUTROPHILS # (AUTO) 4.1 x10^3/uL (2.2-4.8); PLATELET COUNT 368 X10^3/uL (150.0-450.0); RED BLOOD COUNT 3.75 X10^6/uL (3.5-5.4); WHITE BLOOD COUNT 5.9 X10^3/uL (3.6-10.0)
[2019-11-22 05:11] LABS: ALANINE AMINOTRANSFERASE 33 Units/L (12-78); ALBUMIN 2.9 g/dL (3.4-5.0); ALKALINE PHOSPHATASE 55 Units/L (46-116); ASPARTATE AMINO TRANSFERASE 27 Units/L (15-37); BLOOD UREA NITROGEN 10 mg/dL (7-18); CALCIUM 9.1 mg/dL (8.5-10.1); CHLORIDE 104 mmol/L (98-107); CREATININE 0.78 mg/dL (0.55-1.02); SODIUM 138 mmol/L (136-145); TOTAL PROTEIN 6.3 g/dL (6.4-8.2); eGFR NON BLACK RACES > 60 (>60)
[2019-11-22] MEDS: ULTRAM PO SCH (05:15)
[2019-11-22] MEDS: NEURONTIN CAP 300 MG PO SCH (05:15)
[2019-11-22] MEDS: K-DUR TAB 20 MEQ PO PRN (05:15)
[2019-11-22] MEDS: SYNTHROID 50 mcg TAB PO SCH ×2 (05:16→09:18)
[2019-11-22 09:04] VITALS: BP 167/75
[2019-11-22] MEDS: LOVENOX INJ 40 MG SYR SC SCH (09:14)
[2019-11-22] MEDS: BENICAR TAB 40 MG PO SCH (09:15)
[2019-11-22] MEDS: HYDROCHLOROTHIAZIDE 25 MG TAB PO SCH (09:15)
[2019-11-22] MEDS: PROTONIX TAB 40 MG PO SCH (09:16)
[2019-11-22] MEDS: NORVASC TAB 10 MG PO SCH (09:16)
[2019-11-22] MEDS: TRICOR TAB 160 MG PO SCH (09:16)
[2019-11-22] MEDS: FORTAZ or TAZICEF VIAL INJ 1 G in NS 100 ML IV + SPIKE MINIBAG* 100 ML IV SCH (09:16)
[2019-11-22] MEDS: COREG TAB 12.5 MG PO SCH (09:16)
[2019-11-22] MEDS: VSL#3 PO SCH (09:17)
[2019-11-22] MEDS: MICRO K EXTEN CAP 10 MEQ PO SCH (09:17)
== END 2019-11-22 11:20 | disposition home or self-care (01) | DRG 690 ==
LOC: MED/SURG → OBSVTOIN 19:34
PROVIDERS: ADMIT Internal Medicine; ATTEND Internal Medicine
DX: N17.9 Acute kidney failure, unspecified; R26.81 Unsteadiness on feet; E83.42 Hypomagnesemia; R19.7 Diarrhea, unspecified; N20.0 Calculus of kidney; N10 Acute pyelonephritis; I10 Essential (primary) hypertension; E86.0 Dehydration; B96.1 Klebsiella pneumoniae [K. pneumoniae] as the cause of diseases classified elsewhere; E87.6 Hypokalemia
CPT/HCPCS: 36415; 80053; 83735; 84132; 85025; 87040; 97110; 97161; A4222; J0713; J1650; J1956; J3475; J7030; J7050